=== PATIENT | male | born 1980 | race African-American/Black ===

== ENCOUNTER 2017-01-11 11:56 | Emergency (ER) | payer OTHER ==
[~2017-01-11] VITALS: Ht 188 cm; Wt 114.0 kg
[~2017-01-11 11:56] MED LIST: MOTRIN600 MG PO; PERCOCET 5/31 TABLET PO; PREDNISONE10 M1 PO; VENTOLIN HFA18 GM IH
[2017-01-11 12:00] VITALS: BP 183/86
== END 2017-01-11 15:41 | disposition left against medical advice (07) ==
LOC: EME 11:56
DX: S93.602A Unspecified sprain of left foot, initial encounter (principal); X58.XXXA Exposure to other specified factors, initial encounter; Y93.01 Activity, walking, marching and hiking; F17.200 Nicotine dependence, unspecified, uncomplicated
CPT/HCPCS: 73630; 87651 90; 99281; 99283